=== PATIENT | female | born 1970 | race Caucasian/White ===

== ENCOUNTER 2024-07-28 06:27 | Day surgery (SDC) | payer OTHER, SELFPAY ==
[2024-07-28] VITALS (7 sets, daily range): BP systolic 121–143; BP diastolic 66–103; BMI 24.2
[2024-07-28 09:14] LABS: Hematocrit 31.4 % (37.0-47.0); Hemoglobin 10.7 g/dL (12.0-16.0); Mean Corp Hgb Conc. 34.1 g/dL (33.0-37.0); Mean Corpuscular Hgb 30.6 pg (27.0-31.0); Mean Corpuscular Volume 89.7 fL (81.0-99.0); Mean Platelet Volume 9.3 fL (7.4-10.4); Platelet Count 222 10^3/uL (130-400); Red Cell Dist. Width 13.8 % (11.5-14.5)
[2024-07-28] MEDS: NORMOSOL-R/PLASMALYTE-A 1000 IV (09:28)
[2024-07-28] MEDS: Pyridium 200 MG PO (12:09)
[2024-07-28] MEDS: VALIUM 5 MG PO (12:10)
--- NOTE | 2024-07-28 14:03 | PTCARENOTE ---
Covering for Katherine RN. Patient is requesting to get the entire bag of IVF after surgery. IVF infusing per patient request. Will monitor patient.
== END 2024-07-28 13:45 | disposition home or self-care (01) ==
LOC: SDS 06:27
PROVIDERS: ATTENDING PHYSICIAN Urology
DX: N30.11 Interstitial cystitis (chronic) with hematuria (principal); N32.89 Other specified disorders of bladder
CPT/HCPCS: 52224; 88305; 85027; 88341; 88342; 93005